=== PATIENT | male | born 1985 | race Caucasian/White ===

== ENCOUNTER 2022-06-20 06:05 | Emergency (ER) | payer OTHER ==
[2022-06-20 06:13] VITALS: BP 153/64; PULSE 98; RESP 18; TEMP 96.7; BMI 29.0
[2022-06-20 07:50] LABS: EPI CELLS 1 /uL (0-25.1); HYALINE CASTS 0 /uL (0-3.1); URINE APPEARANCE CLEAR; URINE BILIRUBIN 1+ (NEGATIVE); URINE COLOR RED; URINE GLUCOSE (UA) NEGATIVE (NEGATIVE); URINE KETONE NEGATIVE (NEGATIVE); URINE LEUK ESTERASE 1+ (NEGATIVE); URINE NITRITE POSITIVE (NEGATIVE); URINE PROTEIN 3+ (NEGATIVE); URINE RBC 2 /uL (0-23.9); URINE UROBILINOGEN 0.2 mg/dL (0.2-1.0); URINE WBC 0 /uL (0-25.8)
[2022-06-20 07:59] LABS: URINE BACTERIA 3.8 /uL (0-1359)
[2022-06-20 08:33] LABS: HEMATOCRIT 47.1 % (35.4-49); HEMOGLOBIN 15.6 GM/dL (11.7-16.9); MCH 28.9 pg (25.7-33.7); MCHC 33.1 g/dl (32.0-35.9); MEAN CELL VOLUME 87.3 fl (80-96); MEAN PLT VOLUME 9.8 fl (7.5-11.1); PLATELET COUNT 240 10^3/uL (134-434); RBC 5.39 M/mm3 (4.00-5.60); WHITE BLOOD COUNT 9.9 K/mm3 (4.0-10.0)
[2022-06-20 08:46] LABS: CALCIUM 9.2 mg/dL (8.5-10.1)
[2022-06-20 08:48] LABS: BLOOD UREA NITROGEN 8.8 mg/dL (7-18)
[2022-06-20 08:49] LABS: CREATININE 0.6 mg/dL (0.55-1.3)
== END 2022-06-20 10:09 | disposition home or self-care (01) ==
LOC: JER 06:05
DX: R31.9 Hematuria, unspecified (principal)
CPT/HCPCS: 36415; 74176-TC; 80048; 81003; 85027; 87086; 99284-25